=== PATIENT | female | born 2000 ===

== ENCOUNTER 2025-07-09 15:30 | Emergency (ER) | payer OTHER ==
[~2025-07-09] VITALS: Ht 162.6 cm; Wt 66.7 kg
[2025-07-09 15:44] VITALS: BP 121/77; O2SAT 98
[2025-07-09] MEDS ORDERED: DEXAMETHASONE SODIUM PHOSPHATE 4 MG/ML VIAL IM ONE (16:15)
[2025-07-09] MEDS ORDERED: DEXAMETHASONE SODIUM PHOSPHATE 4 MG/ML VIAL ONE (16:23)
[2025-07-09 16:46] LABS: BASO % 0.4 % (0.1-1.2); EOS # 0.44 (0.04-0.54); EOS % 5.2 % (0.7-7.0); LYMPH # 0.93 (1.18-3.74); LYMPH % 11.0 % (19.3-53.1); MEAN PLATELET VOLUME 10.90 fl (9.4-12.4); MONO # 1.07 (0.24-0.82); NEUT # 6.01 (1.56-6.13); NEUT % 70.7 % (34.0-71.1); RED CELL DISTRIBUTION WIDTH 14.2 % (11.6-14.4)
[2025-07-09 17:07] LABS: MONO % 12.6 % (4.7-12.5)
[2025-07-09 17:10] LABS: COVID-19 AG NEGATIVE (NEGATIVE)
[2025-07-09] MEDS ORDERED: MEDROLPACK PO (17:34)
[2025-07-09] MEDS ORDERED: ZITHROMAX500 MG PO (17:34)
== END 2025-07-09 19:16 | disposition home or self-care (01) ==
LOC: ER 15:30
PROVIDERS: General Practice
DX: J06.9 Acute upper respiratory infection, unspecified (principal); Z20.822 Contact with and (suspected) exposure to COVID-19